=== PATIENT | male | born 1940 | race Caucasian/White ===

== ENCOUNTER 2024-02-07 10:07 | Inpatient (IN) ==
[2024-02-07 11:08] LABS: PCO2 Arterial 36 mmHg (35-45); PO2 Arterial 178 mmHg (80-100)
[2024-02-07 11:11] LABS: ABS Basophils 0.1 10^3/uL (0.0-0.1); ABS Eosinophils 0.4 10^3/uL (0.0-0.5); ABS Lymphocytes 1.3 10^3/uL (1.0-4.8); ABS Monocytes 0.4 10^3/uL (0.0-1.1); ABS Neutrophils 1.7 10^3/uL (1.5-7.6); ABS Nucleated RBC 0.02 10^3/ul; Eosinophil % 9.8 %; Hematocrit 35.4 % (38-53); Hemoglobin 11.4 g/dL (13.2-16.3); Lymphocyte % 34.5 %; Mean Corpuscular Hemoglobin 29.5 pg (27-33); Mean Corpuscular Volume 92.1 fL (80-97); Mean Platelet Volume 8.4 fL (7.5-11.2); Nucleated Red Blood Cells % 0.4 %/100WBC (0.0-0.8); Platelet Count 122 10^3/uL (150-450); Red Blood Count 3.85 10^6/uL (4.06-5.63); Red Cell Distribution Width 18.7 % (12-17); White Blood Count 3.9 10^3/uL (3.6-10.2)
[2024-02-07] MEDS: Cefepime 2 GM in Dextrose 2 GM/50 ML BAG IV ONE (11:13)
[2024-02-07] MEDS: Azithromycin 500 mg/250 ml NS 500 MG/250 ML BAG IVPB ONE (11:13)
[2024-02-07 11:21] LABS: Urine Appearance Turbid; Urine Bilirubin Negative (Negative); Urine Blood Negative (Negative); Urine Color Yellow; Urine Glucose Negative (Negative); Urine Ketones Negative (Negative); Urine Nitrite Negative (Negative); Urine Protein 2+ (>=100 mg/dL) (Negative); Urine Specific Gravity 1.023 (1.002-1.030); Urine Urobilinogen Negative (Negative); Urine pH 5.5 (5.0-8.0)
[2024-02-07 11:23] LABS: Activated Partial Thrombo Time 39.9 seconds (26.0-38.0); INR 1.54 (0.83-1.13)
[2024-02-07 11:23] LABS: Urine Bacteria Absent /HPF (Absent); Urine Red Blood Cell 1+(3-5/hpf) /HPF (0-Trace); Urine White Blood Cell Trace(0-5/hpf) /HPF (0-Trace)
[2024-02-07] MEDS: Albuterol/Ipratropium NEB.SOL (2.5/0.5 MG) 3 ML NEB.SOLN INH ONE (11:27)
[2024-02-07 11:34] LABS: ALT 16 U/L (7-52); AST 27 U/L (13-39); Albumin/Globulin Ratio 0.8 (1-3); Alkaline Phosphatase 109 U/L (35-149); Anion Gap 7 mmol/L (2-16); Blood Urea Nitrogen 47 mg/dL (6-24); C Reactive Protein 52.59 mg/L (<8.01); CO2 Carbon Dioxide 23 mmol/L (22-32); Calcium 8.1 mg/dL (8.6-10.3); Chloride 113 mmol/L (101-111); Glucose 106 mg/dL (70-100); High Sens Troponin Baseline 14 pg/mL (<20); Potassium 5.2 mmol/L (3.5-5.0); Sodium 143 mmol/L (135-145); Total Bilirubin 0.7 mg/dL (0.2-1.0); eGFR CKD-EPI 26.4 (>60)
[2024-02-07] MEDS: NS 0.9% IV SCH (12:01)
[2024-02-07 12:17] LABS: High Sensitivity Troponin 1 Hr 11 pg/mL (<20)
[2024-02-07] MEDS ORDERED: Albuterol/Ipratropium NEB.SOL (2.5/0.5 MG) 3 ML NEB.SOLN INH PRN (14:07)
[2024-02-07 14:38] LABS: % Iron Saturation 13 % (15-55); .Transferrin 224 mg/dL (203-362); Iron 42 ug/dL (50-212); Total Iron Binding Capacity 314 mcg/dL (250-450); Unsaturated Iron Binding 272 ug/dL
[2024-02-07 14:55] LABS: Ferritin 128.4 ng/mL (24-336)
[2024-02-07 14:59] LABS: Folate > 20.00 ng/mL (5.90-24.80)
[2024-02-07 15:00] LABS: Vitamin B12 1186 pg/mL (180-914)
[2024-02-07] MEDS ORDERED: Rocuronium 50 mg VIAL 10 mg/ml 5 ml VIAL (50 mg) ONE (16:04)
[2024-02-07] MEDS ORDERED: Ketamine HCL 50 mg/ml 10 ml VIAL (500 MG) ONE (16:04)
[2024-02-07] MEDS: fentaNYL INFUSION 50 mcg/mL VL 2,500 MCG/50 ML VIAL IV SCH (16:19)
[2024-02-07] MEDS: Rocuronium 50 mg VIAL 10 mg/ml 5 ml VIAL (50 mg) ONE ×2 (16:25→16:26)
[2024-02-07] MEDS: Rocuronium 50 mg VIAL 10 mg/ml 5 ml VIAL (50 mg) IV ONE (16:26)
[2024-02-07] MEDS: Succinylcholine 200 mg VIAL 20 mg/ml 10 ml VIAL (200 mg) ONE (16:26)
[2024-02-07] MEDS: EPINEPHrine SYR 0.1MG/ML 10 ml SYRINGE IV ONE (16:26)
[2024-02-07] MEDS: Ketamine HCL 50 mg/ml 10 ml VIAL (500 MG) IV ONE (16:26)
[2024-02-07] MEDS: Midazolam 5 mg/5 ml VIAL 1 mg/ml 5 ml VIAL (5 mg) IV SLOW PU PRN (18:21)
[2024-02-07] MEDS: DOBUTAMINE IV SCH (19:07)
[2024-02-07] MEDS: D5W IV SCH (19:07)
[2024-02-07] MEDS: Norepinephrine 4 MG/250mL D5W 4,000 MCG/250 ML BAG IV SCH (19:17)
[2024-02-07 20:10] LABS: PCO2 Arterial 40 mmHg (35-45); PO2 Arterial 155 mmHg (80-100)
[2024-02-07 20:52] LABS: Albumin 2.4 g/dL (3.2-5.2); Albumin/Globulin Ratio 0.8 (1-3); Calcium 7.4 mg/dL (8.6-10.3); Creatinine, Serum 2.42 mg/dL (0.67-1.17); Globulin 3.2 g/dL (2-4); Potassium 4.6 mmol/L (3.5-5.0); Total Bilirubin 0.8 mg/dL (0.2-1.0); Total Protein 5.6 g/dL (6.4-8.9); eGFR CKD-EPI 26.2 (>60)
[2024-02-08 06:25] LABS: Hematocrit 29.6 % (38-53); Hemoglobin 9.7 g/dL (13.2-16.3); Mean Corpuscular Hemoglobin 29.6 pg (27-33); Mean Corpuscular Hgb Conc 32.6 g/dL (31-36); Mean Corpuscular Volume 90.8 fL (80-97); Red Blood Count 3.26 10^6/uL (4.06-5.63); Red Cell Distribution Width 18.7 % (12-17); White Blood Count 3.9 10^3/uL (3.6-10.2)
[2024-02-08 06:45] LABS: Anion Gap 8 mmol/L (2-16); Blood Urea Nitrogen 48 mg/dL (6-24); CO2 Carbon Dioxide 22 mmol/L (22-32); Calcium 7.2 mg/dL (8.6-10.3); Chloride 114 mmol/L (101-111); Creatinine, Serum 2.38 mg/dL (0.67-1.17); Glucose 127 mg/dL (70-100); Potassium 4.3 mmol/L (3.5-5.0); Sodium 144 mmol/L (135-145); eGFR CKD-EPI 26.7 (>60)
[2024-02-08 07:25] LABS: ABS Eosinophils 0.1 10^3/uL (0.0-0.5); ABS Lymphocytes 0.8 10^3/uL (1.0-4.8); ABS Monocytes 0.3 10^3/uL (0.0-1.1); ABS Neutrophils 2.6 10^3/uL (1.5-7.6); ABS Nucleated RBC 0.01 10^3/ul; Eosinophil % 2.6 %; Lymphocyte % 20.6 %; Nucleated Red Blood Cells % 0.2 %/100WBC (0.0-0.8); Platelet Count 95 10^3/uL (150-450)
[2024-02-08] MEDS: Chlorhexidine MOUTHWASH 0.12% 15 ML UDC SWISH SPIT SCH ×2 (08:32→17:54)
[2024-02-08] MEDS: Pantoprazole VIAL 40 MG VIAL IV SCH (08:32)
[2024-02-08] MEDS: DOBUTamine IV 500 MG in D5W 250 ml BAG 210 ML IV SCH ×2 (09:45→10:23)
[2024-02-08 10:16] LABS: % Iron Saturation 9 % (15-55); .Transferrin 166 mg/dL (203-362); Iron < 20 ug/dL (50-212); Magnesium 1.8 mg/dL (1.9-2.7); Total Iron Binding Capacity 232 mcg/dL (250-450); Unsaturated Iron Binding 212 ug/dL
[2024-02-08 10:31] LABS: HIV 4th Generation Nonreactive (Nonreactive)
[2024-02-08 10:36] LABS: Ferritin 95.9 ng/mL (24-336)
[2024-02-08] MEDS: Azithromycin 500 mg/250 ml NS 500 MG/250 ML BAG IVPB SCH (10:55)
[2024-02-08] MEDS: Enoxaparin 30 MG/0.3 ML SYR SUBCUT SCH (10:55)
[2024-02-08] MEDS: Ferric Gluconate IV 125 MG in NS 0.9% 100 ml BAG 100 ML IVPB ONE (10:55)
[2024-02-08 11:53] LABS: ABS Eosinophils 0.1 10^3/uL (0.0-0.5); ABS Lymphocytes 0.6 10^3/uL (1.0-4.8); ABS Monocytes 0.3 10^3/uL (0.0-1.1); ABS Neutrophils 2.6 10^3/uL (1.5-7.6); ABS Nucleated RBC 0.01 10^3/ul; Eosinophil % 3.5 %; Hematocrit 29.3 % (38-53); Hemoglobin 9.6 g/dL (13.2-16.3); Lymphocyte % 17.4 %; Mean Corpuscular Hemoglobin 29.5 pg (27-33); Mean Corpuscular Hgb Conc 32.7 g/dL (31-36); Mean Corpuscular Volume 90.2 fL (80-97); Mean Platelet Volume 7.8 fL (7.5-11.2); Nucleated Red Blood Cells % 0.3 %/100WBC (0.0-0.8); Platelet Count 95 10^3/uL (150-450); Red Blood Count 3.25 10^6/uL (4.06-5.63); Red Cell Distribution Width 18.8 % (12-17); White Blood Count 3.7 10^3/uL (3.6-10.2)
[2024-02-08 12:27] LABS: Creatinine, Serum 2.26 mg/dL (0.67-1.17); eGFR CKD-EPI 28.4 (>60)
[2024-02-08 12:47] LABS: POC SO2 91 %
[2024-02-08 12:47] LABS: POC SO2 68 %
[2024-02-08] MEDS: Norepinephrine *QUAD STRENGTH* 16 mg/250 mL NS PREMIX (ICU ONLY) IV SCH (12:47)
[2024-02-08 12:52] LABS: Hepatitis B Surface Antigen Nonreactive (Nonreactive)
[2024-02-08] MEDS: Magnesium Sulfate 2 gm BAG 2 GM/50 ML BAG IVPB ONE (13:02)
[2024-02-08 13:09] LABS: Hepatitis B Surface Ab Not Immune (Immune)
[2024-02-08 13:10] LABS: Hepatitis C Antibody Negative (Negative)
[2024-02-08] MEDS: Heparin 5000 UNITS/ML 1 mL VIAL IV SCH (13:10)
[2024-02-08] MEDS: Heparin DRIP 25,000 UNITS BAG 25,000 UNITS/250 ML BAG IV SCH (13:17)
[2024-02-08] MEDS: cefTRIAXone 1 gm/50 mL D5W 1 GM/50 ML BAG IV SCH (17:54)
[2024-02-08] MEDS: Erythromycin OPTH OINT APPLIC OINT BOTH EYES SCH (22:36)
[2024-02-09] MEDS ORDERED: Sucralfate 1 gm SUSP 1 GM/10 ML UDC PO SCH (02:00)
[2024-02-09] MEDS: Sucralfate 1 gm SUSP 1 GM/10 ML UDC G TUBE SCH (02:47)
[2024-02-09 05:20] LABS: ABS Eosinophils 0.4 10^3/uL (0.0-0.5); ABS Lymphocytes 0.7 10^3/uL (1.0-4.8); ABS Monocytes 0.4 10^3/uL (0.0-1.1); ABS Neutrophils 3.1 10^3/uL (1.5-7.6); ABS Nucleated RBC 0.01 10^3/ul; Eosinophil % 8.5 %; Hematocrit 33.6 % (38-53); Hemoglobin 10.9 g/dL (13.2-16.3); Lymphocyte % 14.6 %; Mean Corpuscular Hemoglobin 29.4 pg (27-33); Mean Corpuscular Hgb Conc 32.3 g/dL (31-36); Mean Platelet Volume 7.7 fL (7.5-11.2); Nucleated Red Blood Cells % 0.1 %/100WBC (0.0-0.8); Platelet Count 130 10^3/uL (150-450); Red Blood Count 3.69 10^6/uL (4.06-5.63); Red Cell Distribution Width 18.4 % (12-17); White Blood Count 4.6 10^3/uL (3.6-10.2)
[2024-02-09 06:29] LABS: Albumin 2.3 g/dL (3.2-5.2); Albumin/Globulin Ratio 0.7 (1-3); Calcium 7.4 mg/dL (8.6-10.3); Creatinine, Serum 2.37 mg/dL (0.67-1.17); Globulin 3.3 g/dL (2-4); Magnesium 2.2 mg/dL (1.9-2.7); Potassium 4.5 mmol/L (3.5-5.0); Total Bilirubin 0.7 mg/dL (0.2-1.0); Total Protein 5.6 g/dL (6.4-8.9); eGFR CKD-EPI 26.8 (>60)
[2024-02-09] MEDS: Norepinephrine 16 MG/250mL NS 16,000 MCG/250 ML BAG IV SCH (08:31)
[2024-02-09 19:59] LABS: Body Fluid Appearance Clear; Body Fluid Color Yellow; Body Fluid Source Pleural Fluid
[2024-02-09 20:10] LABS: Body Fluid Appearance Clear; Body Fluid Color Yellow; Body Fluid Source Pleural Fluid
[2024-02-09 21:07] LABS: Body Fluid Total Nucleated 91 /mcL
[2024-02-09 21:10] LABS: Body Fluid Total Nucleated 182 /mcL
[2024-02-09] MEDS: cefTRIAXone 1 gm/50 mL D5W 1 GM/50 ML BAG IV ONE (21:24)
[2024-02-09] MEDS: EPINEPHrine SYR 0.1MG/ML 10 ml SYRINGE IV ONE (21:29)
[2024-02-09 21:52] LABS: Body Fluid Mono 51 %; Body Fluid Other Cells 15; Body Fluid Total Cells Counted 200
[2024-02-09 21:58] LABS: Body Fluid Mono 32 %; Body Fluid Other Cells 7; Body Fluid Total Cells Counted 200
[2024-02-10 04:24] LABS: ABS Basophils 0.1 10^3/uL (0.0-0.1); ABS Eosinophils 0.4 10^3/uL (0.0-0.5); ABS Lymphocytes 0.9 10^3/uL (1.0-4.8); ABS Monocytes 0.5 10^3/uL (0.0-1.1); ABS Neutrophils 2.8 10^3/uL (1.5-7.6); ABS Nucleated RBC 0.01 10^3/ul; Eosinophil % 9.3 %; Hematocrit 31.6 % (38-53); Hemoglobin 10.3 g/dL (13.2-16.3); Lymphocyte % 19.6 %; Mean Corpuscular Hemoglobin 29.5 pg (27-33); Mean Corpuscular Hgb Conc 32.7 g/dL (31-36); Mean Corpuscular Volume 90.4 fL (80-97); Mean Platelet Volume 7.9 fL (7.5-11.2); Nucleated Red Blood Cells % 0.3 %/100WBC (0.0-0.8); Platelet Count 133 10^3/uL (150-450); Red Blood Count 3.49 10^6/uL (4.06-5.63); Red Cell Distribution Width 18.7 % (12-17); White Blood Count 4.7 10^3/uL (3.6-10.2)
[2024-02-10 04:30] LABS: Calcium 7.2 mg/dL (8.6-10.3); Creatinine, Serum 2.31 mg/dL (0.67-1.17); Magnesium 2.1 mg/dL (1.9-2.7); Potassium 4.5 mmol/L (3.5-5.0); eGFR CKD-EPI 27.7 (>60)
[2024-02-10 08:46] LABS: Total Protein 5.3 g/dL (6.4-8.9)
[2024-02-10] MEDS ORDERED: cefTRIAXone 2 gm/50 mL D5W 2 GM/50 ML BAG IV SCH (09:15)
[2024-02-10] MEDS: Ferric Gluconate IV 125 MG in NS 0.9% 100 ml BAG 100 ML IVPB ONE (10:48)
[2024-02-10] MEDS: fentaNYL 100 mcg/2 ml 50 MCG/ML VIAL IV SLOW PU ONE (15:25)
[2024-02-10] MEDS: cefTRIAXone 2 gm/50 mL D5W 2 GM/50 ML BAG IV SCH (15:42)
[2024-02-11 05:37] LABS: ABS Basophils 0.1 10^3/uL (0.0-0.1); ABS Eosinophils 0.4 10^3/uL (0.0-0.5); ABS Lymphocytes 1.1 10^3/uL (1.0-4.8); ABS Monocytes 0.5 10^3/uL (0.0-1.1); ABS Neutrophils 3.1 10^3/uL (1.5-7.6); ABS Nucleated RBC 0.01 10^3/ul; Eosinophil % 7.5 %; Hematocrit 30.6 % (38-53); Hemoglobin 10.1 g/dL (13.2-16.3); Lymphocyte % 21.4 %; Mean Corpuscular Hemoglobin 29.7 pg (27-33); Mean Corpuscular Volume 89.9 fL (80-97); Mean Platelet Volume 7.2 fL (7.5-11.2); Nucleated Red Blood Cells % 0.1 %/100WBC (0.0-0.8); Platelet Count 131 10^3/uL (150-450); Red Cell Distribution Width 18.4 % (12-17); White Blood Count 5.2 10^3/uL (3.6-10.2)
[2024-02-11 06:20] LABS: Calcium 7.5 mg/dL (8.6-10.3); Creatinine, Serum 2.19 mg/dL (0.67-1.17); Potassium 4.3 mmol/L (3.5-5.0); eGFR CKD-EPI 29.5 (>60)
[2024-02-11] MEDS: Furosemide 40 mg/4 ml IV VIAL IV SLOW PU ONE (10:06)
[2024-02-11 15:24] LABS: Lactate Dehydrogenase, BF 78 U/L
[2024-02-11 15:24] LABS: Lactate Dehydrogenase, BF 75 U/L
[2024-02-11] MEDS: Metoprolol Tartrate 5 mg VIAL 5 ml VIAL (1 mg/ml) IV ONE (19:17)
[2024-02-12 05:33] LABS: ABS Eosinophils 0.1 10^3/uL (0.0-0.5); ABS Lymphocytes 0.8 10^3/uL (1.0-4.8); ABS Monocytes 0.8 10^3/uL (0.0-1.1); ABS Neutrophils 5.5 10^3/uL (1.5-7.6); ABS Nucleated RBC 0.01 10^3/ul; Eosinophil % 1.2 %; Hematocrit 29.7 % (38-53); Hemoglobin 9.7 g/dL (13.2-16.3); Lymphocyte % 10.5 %; Mean Corpuscular Hemoglobin 29.5 pg (27-33); Mean Corpuscular Hgb Conc 32.7 g/dL (31-36); Mean Corpuscular Volume 90.4 fL (80-97); Mean Platelet Volume 7.3 fL (7.5-11.2); Nucleated Red Blood Cells % 0.1 %/100WBC (0.0-0.8); Platelet Count 121 10^3/uL (150-450); Red Blood Count 3.29 10^6/uL (4.06-5.63); Red Cell Distribution Width 18.8 % (12-17); White Blood Count 7.3 10^3/uL (3.6-10.2)
[2024-02-12 06:25] LABS: Calcium 7.8 mg/dL (8.6-10.3); Creatinine, Serum 2.68 mg/dL (0.67-1.17); Potassium 4.8 mmol/L (3.5-5.0); eGFR CKD-EPI 23.2 (>60)
[2024-02-12] MEDS: Polyethylene Glycol 3350 17 GM PACKET PO PRN (08:30)
[2024-02-12] MEDS: Metoprolol Tartrate 5 mg VIAL 5 ml VIAL (1 mg/ml) IV SCH (10:18)
[2024-02-12] MEDS ORDERED: Enoxaparin 30 MG/0.3 ML SYR SUBCUT SCH (11:00)
[2024-02-12] MEDS ORDERED: Enoxaparin 40 MG/0.4 ML SYR SUBCUT SCH (11:00)
[2024-02-12 11:23] LABS: Total Protein, BF 2.1 g/dL
[2024-02-12 11:23] LABS: Total Protein, BF 2.1 g/dL
[2024-02-12] MEDS: Acetaminophen IV 1 GM/100ML 1,000 MG/100 ML BAG IV ONE (13:14)
[2024-02-12] MEDS: Dexmedetomidine 1,000 MCG in NS 0.9% 250 ml 240 ML IV SCH (19:30)
[2024-02-12] MEDS ORDERED: Acetaminophen IV 1 GM/100ML 1,000 MG/100 ML BAG IV PRN (19:38)
[2024-02-12] MEDS ORDERED: Acetaminophen IV 1 GM/100ML 1,000 MG/100 ML BAG IV SCH (21:00)
[2024-02-12] MEDS: Enoxaparin 30 MG/0.3 ML SYR SUBCUT SCH (21:35)
[2024-02-13 04:53] LABS: ABS Eosinophils 0.2 10^3/uL (0.0-0.5); ABS Lymphocytes 0.7 10^3/uL (1.0-4.8); ABS Monocytes 0.6 10^3/uL (0.0-1.1); ABS Neutrophils 3.6 10^3/uL (1.5-7.6); ABS Nucleated RBC 0.01 10^3/ul; Eosinophil % 3.2 %; Hematocrit 29.2 % (38-53); Hemoglobin 9.5 g/dL (13.2-16.3); Lymphocyte % 14.1 %; Mean Corpuscular Hemoglobin 29.4 pg (27-33); Mean Corpuscular Hgb Conc 32.5 g/dL (31-36); Mean Corpuscular Volume 90.6 fL (80-97); Mean Platelet Volume 7.5 fL (7.5-11.2); Nucleated Red Blood Cells % 0.2 %/100WBC (0.0-0.8); Platelet Count 80 10^3/uL (150-450); Red Blood Count 3.23 10^6/uL (4.06-5.63); Red Cell Distribution Width 18.7 % (12-17); White Blood Count 5.1 10^3/uL (3.6-10.2)
[2024-02-13 05:19] LABS: Calcium 7.6 mg/dL (8.6-10.3); Creatinine, Serum 2.79 mg/dL (0.67-1.17); Potassium 4.8 mmol/L (3.5-5.0); eGFR CKD-EPI 22.1 (>60)
[2024-02-13] MEDS: fentaNYL 100 mcg/2 ml 50 MCG/ML VIAL IV SLOW PU PRN (09:00)
[2024-02-13] MEDS: fentaNYL 100 mcg/2 ml 50 MCG/ML VIAL IV SLOW PU ONE ×3 (09:00→11:17)
[2024-02-13] MEDS ORDERED: Dextrose 50% Syringe 50 ml 25 GM/50 ML SYRINGE IV PUSH PRN (15:19)
[2024-02-13 18:11] LABS: Activated Partial Thrombo Time 58.6 seconds (26.0-38.0); INR 1.63 (0.83-1.13)
[2024-02-13] MEDS: Metoprolol Tartrate 5 mg VIAL 5 ml VIAL (1 mg/ml) IV SCH (22:20)
[2024-02-13] MEDS: Pantoprazole VIAL 40 MG VIAL IV SCH (22:20)
[2024-02-14 05:33] LABS: ABS Eosinophils 0.2 10^3/uL (0.0-0.5); ABS Lymphocytes 0.5 10^3/uL (1.0-4.8); ABS Monocytes 0.4 10^3/uL (0.0-1.1); ABS Neutrophils 3.4 10^3/uL (1.5-7.6); ABS Nucleated RBC 0.01 10^3/ul; Hematocrit 31.3 % (38-53); Hemoglobin 10.1 g/dL (13.2-16.3); Lymphocyte % 11.8 %; Mean Corpuscular Hemoglobin 29.2 pg (27-33); Mean Corpuscular Hgb Conc 32.2 g/dL (31-36); Mean Corpuscular Volume 90.7 fL (80-97); Mean Platelet Volume 7.8 fL (7.5-11.2); Nucleated Red Blood Cells % 0.2 %/100WBC (0.0-0.8); Platelet Count 72 10^3/uL (150-450); Red Blood Count 3.45 10^6/uL (4.06-5.63); White Blood Count 4.6 10^3/uL (3.6-10.2)
[2024-02-14 06:21] LABS: Calcium 7.8 mg/dL (8.6-10.3); Creatinine, Serum 2.47 mg/dL (0.67-1.17); Magnesium 2.1 mg/dL (1.9-2.7); Phosphorus 3.1 mg/dL (2.5-5.0); Potassium 5.1 mmol/L (3.5-5.0); eGFR CKD-EPI 25.5 (>60)
[2024-02-14] MEDS: Furosemide 40 mg/4 ml IV VIAL IV SLOW PU ONE (10:12)
[2024-02-14 11:25] LABS: Activated Partial Thrombo Time 53.6 seconds (26.0-38.0); INR 1.49 (0.83-1.13)
[2024-02-14] MEDS: fentaNYL 100 mcg/2 ml 50 MCG/ML VIAL IV SLOW PU ONE (15:45)
[2024-02-14] MEDS: Midazolam 2 mg/2 ml VIAL 1 mg/ml 2 ml VIAL (2 mg) IV SLOW PU ONE (15:50)
[2024-02-14] MEDS: fentaNYL 100 mcg/2 ml 50 MCG/ML VIAL ONE (17:34)
[2024-02-14] MEDS: Midazolam 2 mg/2 ml VIAL 1 mg/ml 2 ml VIAL (2 mg) ONE (17:34)
[2024-02-14] MEDS: Metoprolol Tartrate 5 mg VIAL 5 ml VIAL (1 mg/ml) IV PRN ×2 (19:03→21:45)
[2024-02-14] MEDS: fentaNYL 100 mcg/2 ml 50 MCG/ML VIAL IV SLOW PU PRN (19:04)
[2024-02-14] MEDS: Furosemide 40 mg/4 ml IV VIAL IV ONE (20:34)
[2024-02-14] MEDS ORDERED: Midazolam 2 mg/2 ml VIAL 1 mg/ml 2 ml VIAL (2 mg) IV SLOW PU PRN (21:37)
[2024-02-14] MEDS: Midazolam 2 mg/2 ml VIAL 1 mg/ml 2 ml VIAL (2 mg) IV SLOW PU PRN (21:45)
[2024-02-14] MEDS ORDERED: Metoprolol Tartrate 5 mg VIAL 5 ml VIAL (1 mg/ml) IV SCH (22:00)
[2024-02-15] MEDS ORDERED: Metoprolol Tartrate 5 mg VIAL 5 ml VIAL (1 mg/ml) IV PRN (00:08)
[2024-02-15] MEDS: Propofol 10 mg/ml 100 ML BTL 1,000 MG/100 ML BTL IV SCH ×3 (00:17→23:31)
[2024-02-15] MEDS: Propofol 10 mg/ml 100 ML BTL 1,000 MG/100 ML BTL ONE ×2 (04:47→18:47)
[2024-02-15 04:48] LABS: ABS Eosinophils 0.2 10^3/uL (0.0-0.5); ABS Lymphocytes 0.9 10^3/uL (1.0-4.8); ABS Monocytes 0.9 10^3/uL (0.0-1.1); ABS Neutrophils 8.2 10^3/uL (1.5-7.6); ABS Nucleated RBC 0.01 10^3/ul; Eosinophil % 1.7 %; Hematocrit 31.8 % (38-53); Hemoglobin 10.3 g/dL (13.2-16.3); Lymphocyte % 8.6 %; Mean Corpuscular Hemoglobin 29.2 pg (27-33); Mean Corpuscular Hgb Conc 32.2 g/dL (31-36); Mean Corpuscular Volume 90.5 fL (80-97); Mean Platelet Volume 8.2 fL (7.5-11.2); Nucleated Red Blood Cells % 0.1 %/100WBC (0.0-0.8); Platelet Count 98 10^3/uL (150-450); Red Blood Count 3.52 10^6/uL (4.06-5.63); Red Cell Distribution Width 18.9 % (12-17); White Blood Count 10.2 10^3/uL (3.6-10.2)
[2024-02-15 05:04] LABS: Calcium 7.8 mg/dL (8.6-10.3); Creatinine, Serum 2.6 mg/dL (0.67-1.17); Potassium 5.3 mmol/L (3.5-5.0)
[2024-02-15] MEDS: Norepinephrine 4 MG/250mL D5W 4,000 MCG/250 ML BAG IV SCH (10:05)
[2024-02-15] MEDS: Furosemide 20 mg/2 ml IV VIAL IV ONE (10:12)
[2024-02-15] MEDS: Metoprolol Tartrate 5 mg VIAL 5 ml VIAL (1 mg/ml) IV PRN (10:37)
[2024-02-15 15:49] LABS: Anaplasma phagocytophilum Negative (Negative); B. miyamotoi PCR, B Negative (Negative); Babesia divergens/MO-1 Negative (Negative); Babesia ducani Negative (Negative); Ehrlichia chaffeensis Negative (Negative); Ehrlichia ewingii/canis Negative (Negative); Ehrlichia muris eauclairensis Negative (Negative)
[2024-02-15] MEDS: Metoprolol Tartrate 5 mg VIAL 5 ml VIAL (1 mg/ml) IV ONE (17:31)
[2024-02-15] MEDS ORDERED: Rocuronium 50 mg VIAL 10 mg/ml 5 ml VIAL (50 mg) ONE (17:49)
[2024-02-15] MEDS ORDERED: Etomidate 40 mg/20 ml (2 MG/ML) 20 ml VIAL (40 mg) ONE (17:49)
[2024-02-15] MEDS: Rocuronium 50 mg VIAL 10 mg/ml 5 ml VIAL (50 mg) ONE (17:50)
[2024-02-15 18:26] LABS: Calcium 8.7 mg/dL (8.6-10.3); Creatinine, Serum 2.76 mg/dL (0.67-1.17); Potassium 5.8 mmol/L (3.5-5.0); eGFR CKD-EPI 22.4 (>60)
[2024-02-15] MEDS: Chlorhexidine MOUTHWASH 0.12% 15 ML UDC TOPICAL SCH (19:49)
[2024-02-15] MEDS: SODIUM ZIRCONIUM CYCLOSILICATE 10 GM PACKET NG TUBE ONE (19:49)
[2024-02-16 05:25] LABS: ABS Basophils 0.1 10^3/uL (0.0-0.1); ABS Eosinophils 0.2 10^3/uL (0.0-0.5); ABS Lymphocytes 1.2 10^3/uL (1.0-4.8); ABS Monocytes 0.8 10^3/uL (0.0-1.1); ABS Neutrophils 6.3 10^3/uL (1.5-7.6); ABS Nucleated RBC 0.01 10^3/ul; Eosinophil % 2.8 %; Hematocrit 28.9 % (38-53); Hemoglobin 9.5 g/dL (13.2-16.3); Lymphocyte % 13.6 %; Mean Corpuscular Hemoglobin 29.6 pg (27-33); Mean Corpuscular Hgb Conc 32.9 g/dL (31-36); Mean Corpuscular Volume 90.1 fL (80-97); Nucleated Red Blood Cells % 0.1 %/100WBC (0.0-0.8); Platelet Count 93 10^3/uL (150-450); Red Blood Count 3.21 10^6/uL (4.06-5.63); Red Cell Distribution Width 18.8 % (12-17); White Blood Count 8.5 10^3/uL (3.6-10.2)
[2024-02-16 05:44] LABS: Calcium 7.7 mg/dL (8.6-10.3); Creatinine, Serum 2.82 mg/dL (0.67-1.17); Potassium 5.1 mmol/L (3.5-5.0); eGFR CKD-EPI 21.8 (>60)
[2024-02-16 09:32] LABS: Albumin/Globulin Ratio 0.6 (1-3); Direct Bilirubin 0.3 mg/dL (0.03-0.18); Globulin 3.3 g/dL (2-4); Indirect Bilirubin 0.2 mg/dL (0.3-1.0); Total Bilirubin 0.5 mg/dL (0.2-1.0); Total Protein 5.3 g/dL (6.4-8.9)
[2024-02-16] MEDS: Cefepime ADVAN 1 GM in NS 0.9% 50 ML 50 ML IVPB SCH (18:16)
[2024-02-16] MEDS ORDERED: Cefepime 2 GM in Dextrose 2 GM/50 ML BAG IV SCH (19:00)
[2024-02-16] MEDS: Midazolam 5 mg/5 ml VIAL 1 mg/ml 5 ml VIAL (5 mg) IV SLOW PU PRN (20:20)
[2024-02-16] MEDS: Cefepime 2 GM in Dextrose 2 GM/50 ML BAG IV SCH (22:04)
[2024-02-17 04:34] LABS: ABS Basophils 0.1 10^3/uL (0.0-0.1); ABS Eosinophils 0.5 10^3/uL (0.0-0.5); ABS Monocytes 0.6 10^3/uL (0.0-1.1); ABS Neutrophils 5.6 10^3/uL (1.5-7.6); ABS Nucleated RBC 0.01 10^3/ul; Eosinophil % 6.2 %; Hematocrit 28.2 % (38-53); Hemoglobin 9.3 g/dL (13.2-16.3); Mean Corpuscular Hemoglobin 29.5 pg (27-33); Mean Corpuscular Hgb Conc 33.1 g/dL (31-36); Mean Corpuscular Volume 89.1 fL (80-97); Mean Platelet Volume 7.6 fL (7.5-11.2); Nucleated Red Blood Cells % 0.1 %/100WBC (0.0-0.8); Platelet Count 107 10^3/uL (150-450); Red Blood Count 3.17 10^6/uL (4.06-5.63); White Blood Count 7.8 10^3/uL (3.6-10.2)
[2024-02-17 05:17] LABS: Calcium 7.7 mg/dL (8.6-10.3); Creatinine, Serum 2.73 mg/dL (0.67-1.17); Potassium 4.8 mmol/L (3.5-5.0); eGFR CKD-EPI 22.7 (>60)
[2024-02-17 05:42] LABS: Magnesium 1.9 mg/dL (1.9-2.7)
[2024-02-17 15:08] LABS: Activated Partial Thrombo Time 43.2 seconds (26.0-38.0); INR 1.33 (0.83-1.13)
[2024-02-17] MEDS: fentaNYL 100 mcg/2 ml 50 MCG/ML VIAL ONE (19:41)
[2024-02-17] MEDS: fentaNYL 100 mcg/2 ml 50 MCG/ML VIAL IV SLOW PU PRN (19:42)
[2024-02-17 21:06] LABS: Body Fluid Source Cerebral Spinal
[2024-02-17 21:17] LABS: CSF Body Fluid WBC 2 /mcL
[2024-02-17 21:20] LABS: Body Fluid Appearance Clear
[2024-02-17 21:21] LABS: Body Fluid Color Colorless; CSF Tube # 4
[2024-02-17 21:29] LABS: CSF Glucose 87 mg/dL (40-70)
[2024-02-17 21:52] LABS: Body Fluid Mono 33 %; Body Fluid NRBC 3; Body Fluid Total Cells Counted 9
[2024-02-18 05:23] LABS: ABS Eosinophils 0.3 10^3/uL (0.0-0.5); ABS Monocytes 0.7 10^3/uL (0.0-1.1); ABS Neutrophils 5.2 10^3/uL (1.5-7.6); ABS Nucleated RBC 0.01 10^3/ul; Eosinophil % 4.5 %; Hematocrit 28.9 % (38-53); Hemoglobin 9.6 g/dL (13.2-16.3); Lymphocyte % 13.7 %; Mean Corpuscular Hemoglobin 29.4 pg (27-33); Mean Corpuscular Hgb Conc 33.2 g/dL (31-36); Mean Corpuscular Volume 88.4 fL (80-97); Mean Platelet Volume 7.7 fL (7.5-11.2); Nucleated Red Blood Cells % 0.1 %/100WBC (0.0-0.8); Platelet Count 125 10^3/uL (150-450); Red Blood Count 3.27 10^6/uL (4.06-5.63); Red Cell Distribution Width 18.6 % (12-17); White Blood Count 7.2 10^3/uL (3.6-10.2)
[2024-02-18 06:00] LABS: Creatinine, Serum 2.51 mg/dL (0.67-1.17); Magnesium 1.9 mg/dL (1.9-2.7); Potassium 4.8 mmol/L (3.5-5.0); eGFR CKD-EPI 25.1 (>60)
[2024-02-18] MEDS: Lidocaine 1% MPF 5 ML VIAL INJ ONE (13:41)
[2024-02-18] MEDS ORDERED: Lidocaine 2% PF 5 ML VIAL ONE (15:09)
[2024-02-18] MEDS ORDERED: Rocuronium 50 mg VIAL 10 mg/ml 5 ml VIAL (50 mg) ONE (15:09)
[2024-02-18] MEDS ORDERED: Propofol 10 MG/ML 20 ML BTL ONE ×2 (15:09→16:54)
[2024-02-18] MEDS ORDERED: fentaNYL 100 mcg/2 ml 50 MCG/ML VIAL ONE (15:09)
[2024-02-18] MEDS ORDERED: Lidocaine 1% w EPI 1:200,000 SDV 30 ML VIAL ONE (15:16)
[2024-02-18] MEDS ORDERED: Sodium Chloride 0.9% 10 ML ONE (16:14)
[2024-02-18] MEDS ORDERED: Albumin Human 5% 12.5 GM/250 ML BTL IV ONE (16:28)
[2024-02-18] MEDS ORDERED: fentaNYL 100 mcg/2 ml 50 MCG/ML VIAL IV SLOW PU PRN (17:47)
[2024-02-18] MEDS ORDERED: Zosyn per Pharmacy NOTE FOLLOW UP SCH (18:00)
[2024-02-18] MEDS: Piperacillin/Tazobac 3.375 BAG 3.375 GM/100 ML BAG IV ONE (18:20)
[2024-02-18] MEDS: Acetaminophen IV 1 GM/100ML 1,000 MG/100 ML BAG IV ONE (19:05)
[2024-02-18] MEDS: ZOSYN 3.375 GM Q8H per EXTENDED INFUSION IV SCH (23:02)
[2024-02-19 06:03] LABS: ABS Basophils 0.1 10^3/uL (0.0-0.1); ABS Eosinophils 0.4 10^3/uL (0.0-0.5); ABS Lymphocytes 0.8 10^3/uL (1.0-4.8); ABS Monocytes 0.5 10^3/uL (0.0-1.1); ABS Neutrophils 6.9 10^3/uL (1.5-7.6); Eosinophil % 4.3 %; Hematocrit 28.6 % (38-53); Hemoglobin 9.3 g/dL (13.2-16.3); Lymphocyte % 9.5 %; Mean Corpuscular Hemoglobin 29.2 pg (27-33); Mean Corpuscular Hgb Conc 32.5 g/dL (31-36); Mean Corpuscular Volume 89.8 fL (80-97); Mean Platelet Volume 7.7 fL (7.5-11.2); Platelet Count 134 10^3/uL (150-450); Red Blood Count 3.19 10^6/uL (4.06-5.63); Red Cell Distribution Width 18.5 % (12-17); White Blood Count 8.7 10^3/uL (3.6-10.2)
[2024-02-19 06:46] LABS: Calcium 8.2 mg/dL (8.6-10.3); Creatinine, Serum 2.53 mg/dL (0.67-1.17); Magnesium 1.9 mg/dL (1.9-2.7); Potassium 4.4 mmol/L (3.5-5.0); eGFR CKD-EPI 24.8 (>60)
[2024-02-19] MEDS: Acetaminophen IV 1 GM/100ML 1,000 MG/100 ML BAG IV ONE (20:26)
[2024-02-19] MEDS: Magnesium Sulfate IV 1GM/100ML 1 GM/100 ML BAG IV ONE (21:18)
[2024-02-20 04:30] LABS: ABS Basophils 0.1 10^3/uL (0.0-0.1); ABS Eosinophils 0.4 10^3/uL (0.0-0.5); ABS Lymphocytes 0.9 10^3/uL (1.0-4.8); ABS Monocytes 0.5 10^3/uL (0.0-1.1); ABS Neutrophils 6.5 10^3/uL (1.5-7.6); Eosinophil % 5.3 %; Hematocrit 26.7 % (38-53); Hemoglobin 8.8 g/dL (13.2-16.3); Lymphocyte % 10.9 %; Mean Corpuscular Hemoglobin 29.3 pg (27-33); Mean Corpuscular Hgb Conc 32.9 g/dL (31-36); Mean Corpuscular Volume 88.8 fL (80-97); Mean Platelet Volume 7.3 fL (7.5-11.2); Platelet Count 166 10^3/uL (150-450); Red Cell Distribution Width 18.4 % (12-17); White Blood Count 8.5 10^3/uL (3.6-10.2)
[2024-02-20 04:56] LABS: Creatinine, Serum 2.47 mg/dL (0.67-1.17); Magnesium 2.2 mg/dL (1.9-2.7); Potassium 4.2 mmol/L (3.5-5.0); eGFR CKD-EPI 25.5 (>60)
[2024-02-20] MEDS: fentaNYL 100 mcg/2 ml 50 MCG/ML VIAL IV SLOW PU PRN (09:36)
[2024-02-20] MEDS: Ferric Gluconate IV 250 MG in NS 0.9% 250 ml 200 ML IVPB SCH (10:11)
[2024-02-20] MEDS: Furosemide 40 mg/4 ml IV VIAL IV SCH (10:40)
[2024-02-20] MEDS ORDERED: Docusate LIQ 100 MG/10 ML UDC PO PRN (11:27)
[2024-02-20] MEDS: Heparin 5000 UNITS/ML 1 mL VIAL SUBCUT SCH (15:10)
[2024-02-21 04:48] LABS: ABS Basophils 0.1 10^3/uL (0.0-0.1); ABS Eosinophils 0.4 10^3/uL (0.0-0.5); ABS Lymphocytes 0.8 10^3/uL (1.0-4.8); ABS Monocytes 0.5 10^3/uL (0.0-1.1); ABS Neutrophils 8.3 10^3/uL (1.5-7.6); Hematocrit 26.5 % (38-53); Hemoglobin 8.8 g/dL (13.2-16.3); Lymphocyte % 8.3 %; Mean Corpuscular Hemoglobin 29.3 pg (27-33); Mean Corpuscular Hgb Conc 33.3 g/dL (31-36); Mean Corpuscular Volume 87.9 fL (80-97); Platelet Count 191 10^3/uL (150-450); Red Blood Count 3.02 10^6/uL (4.06-5.63); Red Cell Distribution Width 18.1 % (12-17); White Blood Count 10.2 10^3/uL (3.6-10.2)
[2024-02-21 05:13] LABS: Calcium 8.2 mg/dL (8.6-10.3); Creatinine, Serum 2.48 mg/dL (0.67-1.17); Magnesium 2.1 mg/dL (1.9-2.7); Potassium 3.8 mmol/L (3.5-5.0); eGFR CKD-EPI 25.4 (>60)
[2024-02-21] MEDS: Potassium Chloride LIQUID 20 MEQ/15 ML LIQUID NG TUBE ONE (08:49)
[2024-02-21] MEDS: Furosemide 40 mg/4 ml IV VIAL IV SLOW PU ONE (14:22)
[2024-02-22 05:47] LABS: ABS Basophils 0.1 10^3/uL (0.0-0.1); ABS Eosinophils 0.4 10^3/uL (0.0-0.5); ABS Monocytes 0.5 10^3/uL (0.0-1.1); ABS Neutrophils 6.1 10^3/uL (1.5-7.6); ABS Nucleated RBC 0.01 10^3/ul; Eosinophil % 4.7 %; Hematocrit 26.1 % (38-53); Hemoglobin 8.6 g/dL (13.2-16.3); Lymphocyte % 11.9 %; Mean Corpuscular Hemoglobin 29.2 pg (27-33); Mean Corpuscular Volume 88.4 fL (80-97); Mean Platelet Volume 6.9 fL (7.5-11.2); Nucleated Red Blood Cells % 0.1 %/100WBC (0.0-0.8); Platelet Count 220 10^3/uL (150-450); Red Blood Count 2.95 10^6/uL (4.06-5.63); Red Cell Distribution Width 17.8 % (12-17)
[2024-02-22 06:29] LABS: Calcium 8.2 mg/dL (8.6-10.3); Creatinine, Serum 2.61 mg/dL (0.67-1.17); Magnesium 2.1 mg/dL (1.9-2.7); Potassium 3.8 mmol/L (3.5-5.0); eGFR CKD-EPI 23.9 (>60)
[2024-02-23 05:40] LABS: ABS Basophils 0.1 10^3/uL (0.0-0.1); ABS Eosinophils 0.4 10^3/uL (0.0-0.5); ABS Monocytes 0.5 10^3/uL (0.0-1.1); ABS Neutrophils 5.5 10^3/uL (1.5-7.6); ABS Nucleated RBC 0.01 10^3/ul; Eosinophil % 5.5 %; Hemoglobin 8.3 g/dL (13.2-16.3); Lymphocyte % 13.4 %; Mean Corpuscular Hemoglobin 29.4 pg (27-33); Mean Corpuscular Hgb Conc 33.3 g/dL (31-36); Mean Corpuscular Volume 88.5 fL (80-97); Mean Platelet Volume 7.1 fL (7.5-11.2); Nucleated Red Blood Cells % 0.1 %/100WBC (0.0-0.8); Platelet Count 229 10^3/uL (150-450); Red Blood Count 2.82 10^6/uL (4.06-5.63); White Blood Count 7.6 10^3/uL (3.6-10.2)
[2024-02-23 06:08] LABS: Calcium 8.1 mg/dL (8.6-10.3); Creatinine, Serum 2.75 mg/dL (0.67-1.17); Magnesium 2.2 mg/dL (1.9-2.7); Potassium 4.1 mmol/L (3.5-5.0); eGFR CKD-EPI 22.5 (>60)
[2024-02-24 05:24] LABS: ABS Basophils 0.1 10^3/uL (0.0-0.1); ABS Eosinophils 0.4 10^3/uL (0.0-0.5); ABS Monocytes 0.6 10^3/uL (0.0-1.1); ABS Neutrophils 8.1 10^3/uL (1.5-7.6); Hematocrit 24.6 % (38-53); Hemoglobin 8.2 g/dL (13.2-16.3); Lymphocyte % 9.7 %; Mean Corpuscular Hemoglobin 29.4 pg (27-33); Mean Corpuscular Hgb Conc 33.2 g/dL (31-36); Mean Corpuscular Volume 88.6 fL (80-97); Mean Platelet Volume 7.2 fL (7.5-11.2); Platelet Count 237 10^3/uL (150-450); Red Blood Count 2.77 10^6/uL (4.06-5.63); Red Cell Distribution Width 17.5 % (12-17); White Blood Count 10.2 10^3/uL (3.6-10.2)
[2024-02-24 06:06] LABS: Creatinine, Serum 2.89 mg/dL (0.67-1.17); Magnesium 2.2 mg/dL (1.9-2.7); Phosphorus 4.1 mg/dL (2.5-5.0); Potassium 4.6 mmol/L (3.5-5.0); eGFR CKD-EPI 21.2 (>60)
[2024-02-24 08:06] VITALS: BP 110/60
== END 2024-02-24 08:45 | DRG 4 ==
LOC: ED 10:07 → EDHOLD 13:07 → ICU 14:50
PROVIDERS: ADMIT Student in an Organized Health Care Education/Training Program; ATTEND Student in an Organized Health Care Education/Training Program